=== PATIENT | male | born 1960 | race Caucasian/White ===

== ENCOUNTER → 2017-05-28 | Outpatient (CLI) | payer BC ==
[~2017-05-28] MED LIST: ASMANEX INH
--- NOTE | ~2017-05-28 | CR63 ---
[facility]. [facility] A Service of [facility] RADIOLOGY TEXT RESULTS PATIENT: JOSE A MCGREGOR LOCATION: [facility] : 62 UNIT #: [id number] AGE: [address]: Patrick Doctor NOT IN SYSTEM SEX: M ORDER DR: [id number] [address] [address] [id number] O MR#: [id number] Acc #: [id number] NAME: JOSE A MCGREGOR : 1960 SEX: M STUDY DATE/TIME: 05/28/2017 13:20 UNIT: [facility] ROOM: STUDY DESCRIPTION: CR Chest 2 View Ordering Physician: Physician Kathy Villavicencio M.D. Primary Care Physician: Pablo Vásquez Jr., M.D. MEDICAL IMAGING REPORT This report is preliminary unless electronic signature is present. EXAM Chest 05/28/2017 HISTORY 57-year-old male preop clearance for prostate surgery. COMPARISON None. FINDINGS PA and lateral chest views show normal cardiac size and configuration. Hilar structures and mediastinal contours are preserved. Bilateral lungs are expanded and clear. Bony thorax appears normal. IMPRESSION Negative chest. Dictated by... Momo Tay M.D. THIS IS AN ELECTRONICALLY VERIFIED REPORT Momo Tay M.D. at 05/28/2017 4:57 PM SUHAIL/nena TD: 05/28/2017 16:10 JOB #: [id number] MEDICAL IMAGING REPORT Page 1 of 1
--- NOTE | ~2017-05-28 | EKG ---
PATIENT: JOSE A MCGREGOR UNIT #: [id number] Ventricular Rate: 80 BPM Atrial Rate: 80 BPM P-R Interval: 144 ms QRS Duration: 112 ms Q-T Interval: 378 ms QTC Calculation(Bezet): 435 ms P Barco: 74 degrees Calculated R Barco: -8 degrees Calculated T Barco: 40 degrees Diagnosis Line: Normal sinus rhythm with sinus arrhythmia Diagnosis Line: Incomplete right bundle branch block Diagnosis Line: Borderline ECG Diagnosis Line: No previous ECGs available Diagnosis Line: Confirmed by DELMY PEREZ MD ([id number]) on Diagnosis Line: 05/31/2017 12:44:23 PM INTERPRETING MD: ANA AGEE
[2017-05-28 13:22] LABS: BASOPHIL# 0.1 X10e3 (0-0.3); BASOPHIL% 0.9 % (0-2.5); EOSINOPHIL# 0.1 X10e3 (0-0.7); EOSINOPHIL% 1.5 % (0.0-7.0); HEMATOCRIT 42.1 % (38.0-50.0); HEMOGLOBIN 14.9 gm/dL (13.0-16.0); LYMPHOCYTE# 2.4 X10e3 (1.0-3.5); LYMPHOCYTE% 26.5 % (17.0-45.0); MEAN CELL VOLUME 84.4 FL (83-96); MEAN CORPUSCULAR HEMOGLOBIN 29.9 PG (28-34); MEAN CORPUSCULAR HGB CONC 35.4 g/dL (30-36); MEAN PLATELET VOLUME 7.9 FL (6.5-11.5); MONOCYTE# 0.6 X10e3 (0-1.0); MONOCYTE% 6.4 % (3.0-12.0); NEUTROPHIL# 5.8 X10e3 (1.5-7.1); NEUTROPHIL% 64.7 % (40-75); PLATELET COUNT 216 X10e3 (140-420); RED BLOOD COUNT 4.99 X10e (3.90-5.60); RED CELL DISTRIBUTION WIDTH 13.9 % (11.0-15.5); WHITE BLOOD COUNT 8.9 X10e3 (4.0-10.5)
[2017-05-28 13:25] LABS: DIFF IND NO
[2017-05-28 13:27] LABS: URINE APPEARANCE CLEAR; URINE BILIRUBIN NEG (NEG); URINE BLOOD 1+ (NEG); URINE COLOR YELLOW; URINE GLUCOSE NEG (NORM); URINE KETONE NEG (NEG); URINE LEUKOCYTE ESTERASE TRACE (NEG); URINE NITRATE NEG (NEG); URINE PH 5.5 (5-8); URINE PROTEIN NEG (NEG); URINE UROBILINOGEN 0.2 MG/DL (NORM)
[2017-05-28 13:28] LABS: INR 1.1; PROTHROMBIN TIME (PATIENT) 12.9 SECONDS (9.5-12.4)
[2017-05-28 13:33] LABS: MICRO INDICATED? YES
[2017-05-28 13:35] LABS: URINE BACTERIA NEG (NEG); URINE WBC 0-2 /[HPF] (0-5)
[2017-05-28 13:36] LABS: PARTIAL THROMBOPLASTIN TIME 26.8 SECONDS (25.6-38.1)
[2017-05-28 13:40] LABS: ALBUMIN SERUM 4.6 g/dL (3.5-5.0); BILIRUBIN,TOTAL 1.1 mg/dL (0.2-2.0); BUN/CREATININE RATIO 13.84; CALCIUM SERUM 9.4 mg/dL (8.4-10.2); CREATININE SERUM 1.3 mg/dL (0.6-1.4); PROTEIN TOTAL SERUM 8.6 g/dL (6.0-8.3)
[2017-06-01 07:15] LABS: HA AB IGM (HEPPAN) Nonreactive (()); HB CORE AB IGM (HEPPAN) Nonreactive (Nonreactive); HB S AG (HEPPAN) Nonreactive (Nonreactive); HEP C AB (HEPPAN) Nonreactive (Nonreactive); HEP C AB SIGNAL TO CUTOFF 0.07 ratio (<1.00)
== END | disposition home or self-care (01) ==
LOC: SLAB 12:47
DX: Z01.818 Encounter for other preprocedural examination (principal); C61 Malignant neoplasm of prostate; B17.9 Acute viral hepatitis, unspecified; M19.90 Unspecified osteoarthritis, unspecified site
CPT/HCPCS: 36415; 71020; 80053; 80074; 81003; 85025; 85610; 85730; 87086; 93005